=== PATIENT | male | born 1965 | race Caucasian/White ===

== ENCOUNTER 2018-08-21 05:45 | Emergency (ER) | payer OTHER ==
[~2018-08-21] VITALS: Ht 188 cm; Wt 108.9 kg
[~2018-08-21 05:45] MED LIST: CYCL10 PO; HYDACE5 PO; NAPR550 PO; RXNAPNA550 PO
[2018-08-21] MEDS ORDERED: Augmentin 875-1 EACH PO (06:40)
[2018-08-21] MEDS ORDERED: Norco 5-325 Ta1 EACH PO (06:40)
== END 2018-08-21 07:11 | disposition home or self-care (01) ==
LOC: ER 05:45
DX: S01.152A Open bite of left eyelid and periocular area, initial encounter (principal); Z23 Encounter for immunization; W54.0XXA Bitten by dog, initial encounter
CPT/HCPCS: 12013; 90471; 90714; 99283-25

== ENCOUNTER 2019-02-10 03:45 | Emergency (ER) | payer OTHER ==
[~2019-02-10] VITALS: Ht 188 cm; Wt 104.3 kg
[~2019-02-10 03:45] MED LIST changes: +Augmentin 875-1 EACH PO; +Norco 5-325 Ta1 EACH PO
[2019-02-10] MEDS ORDERED: Prinivil10 MG PO (04:19)
[2019-02-10] MEDS ORDERED: AMLO10 PO (04:19)
[2019-02-10 04:28] LABS: BASOPHILS ABSOLUTE AUTO 0.08 K/mm3 (0.00-0.23); BASOPHILS PERCENT AUTO 1 % (0-2); EOSINOPHILS ABSOLUTE AUTO 0.18 K/mm3 (0.00-0.68); EOSINOPHILS PERCENT AUTO 3 % (0-6); Hematocrit 45.4 % (37.0-53.0); Hemoglobin 15.2 g/dL (13.5-17.5); IMMATURE GRAN ABSOLUTE AUTO 0.05 K/mm3 (0.00-0.10); IMMATURE GRAN PERCENT AUTO 1 % (0-1); LYMPHOCYTES ABSOLUTE AUTO 1.87 K/mm3 (0.84-5.20); LYMPHOCYTES PERCENT AUTO 31 % (21-46); MONOCYTES ABSOLUTE AUTO 0.64 K/mm3 (0.16-1.47); MONOCYTES PERCENT AUTO 11 % (4-13); Mean Corpuscular HGB 31.7 pg (26.0-34.0); Mean Corpuscular HGB Conc 33.5 g/dL (31.5-36.5); Mean Corpuscular Volume 95 fL (80-100); Mean Platelet Volume 10.9 fL (9.1-12.4); NEUTROPHILS ABSOLUTE AUTO 3.29 K/mm3 (1.96-9.15); NEUTROPHILS PERCENT AUTO 54 % (41-73); Platelet Count 203 K/mm3 (150-400); RDW Standard Deviation 42.1 fL (35.1-46.3); Red Blood Cell Count 4.79 M/mm3 (4.30-5.90); White Blood Cell Count 6.11 K/mm3 (4.00-11.30)
[2019-02-10 04:49] LABS: Alanine Aminotransfer (ALT/SGP 79 U/L (12-78); Albumin, Blood 3.9 g/dL (3.4-5.0); Albumin/Globulin Ratio 1.3 (0.8-1.8); Alk Phos 75 U/L (50-136); Anion Gap 6 mmol/L (6-16); Aspartate Aminotrans (AST/SGOT 25 U/L (12-37); Bilirubin, Total 0.4 mg/dL (0.1-1.0); Blood Urea Nitrogen 13 mg/dL (8-24); Bun/Creatinine Ratio 19.5 (12.0-20.0); CO2, Blood 27 mmol/L (21-32); Calcium, Blood 8.8 mg/dL (8.5-10.1); Chloride, Blood 109 mmol/L (98-108); Creatinine, Blood 0.67 mg/dL (0.60-1.20); Globulin, Blood 3.1 g/dL (2.2-4.0); Glomerular Filtration Rate >60 (60-); Glucose, Blood 100 mg/dL (70-99); Potassium, Blood 4.1 mmol/L (3.5-5.5); Sodium, Blood 142 mmol/L (136-145); Troponin I <0.015 ng/mL (0.000-0.040)
== END 2019-02-10 06:35 | disposition home or self-care (01) ==
LOC: ER 03:45
PROVIDERS: Emergency Medicine
DX: R07.9 Chest pain, unspecified (principal); M54.9 Dorsalgia, unspecified; Z79.899 Other long term (current) drug therapy
CPT/HCPCS: 36415; 71046; 80053; 83880; 84484; 85025; 93005; 93010; 96374; 99285-25; J1170

== ENCOUNTER 2019-02-12 22:03 | Observation (INO) | payer OTHER ==
[~2019-02-12] VITALS: Ht 188 cm; Wt 105.4 kg
[~2019-02-12 22:03] MED LIST changes: +AMLO10 PO; +Prinivil10 MG PO
[2019-02-12 22:59] LABS: BASOPHILS ABSOLUTE AUTO 0.05 K/mm3 (0.00-0.23); BASOPHILS PERCENT AUTO 1 % (0-2); EOSINOPHILS PERCENT AUTO 1 % (0-6); Hematocrit 42.4 % (37.0-53.0); Hemoglobin 14.3 g/dL (13.5-17.5); IMMATURE GRAN ABSOLUTE AUTO 0.07 K/mm3 (0.00-0.10); IMMATURE GRAN PERCENT AUTO 1 % (0-1); LYMPHOCYTES ABSOLUTE AUTO 1.79 K/mm3 (0.84-5.20); LYMPHOCYTES PERCENT AUTO 17 % (21-46); MONOCYTES ABSOLUTE AUTO 1.07 K/mm3 (0.16-1.47); MONOCYTES PERCENT AUTO 10 % (4-13); Mean Corpuscular HGB 32.3 pg (26.0-34.0); Mean Corpuscular HGB Conc 33.7 g/dL (31.5-36.5); Mean Corpuscular Volume 96 fL (80-100); Mean Platelet Volume 11.2 fL (9.1-12.4); NEUTROPHILS ABSOLUTE AUTO 7.71 K/mm3 (1.96-9.15); NEUTROPHILS PERCENT AUTO 72 % (41-73); Platelet Count 191 K/mm3 (150-400); RDW Coefficient Variation 12.1 % (11.7-14.2); RDW Standard Deviation 42.7 fL (35.1-46.3); Red Blood Cell Count 4.43 M/mm3 (4.30-5.90); White Blood Cell Count 10.79 K/mm3 (4.00-11.30)
[2019-02-12 23:18] LABS: Alanine Aminotransfer (ALT/SGP 140 U/L (12-78); Albumin, Blood 3.9 g/dL (3.4-5.0); Albumin/Globulin Ratio 1.2 (0.8-1.8); Alk Phos 105 U/L (50-136); Anion Gap 6 mmol/L (6-16); Aspartate Aminotrans (AST/SGOT 132 U/L (12-37); Bilirubin, Total 0.7 mg/dL (0.1-1.0); Blood Urea Nitrogen 12 mg/dL (8-24); Bun/Creatinine Ratio 16.2 (12.0-20.0); CO2, Blood 25 mmol/L (21-32); Calcium, Blood 8.4 mg/dL (8.5-10.1); Chloride, Blood 110 mmol/L (98-108); Creatinine, Blood 0.74 mg/dL (0.60-1.20); Globulin, Blood 3.2 g/dL (2.2-4.0); Glomerular Filtration Rate >60 (60-); Glucose, Blood 118 mg/dL (70-99); Sodium, Blood 141 mmol/L (136-145); Total Protein, Blood 7.1 g/dL (6.4-8.2)
[2019-02-13 01:03] LABS: Source, Urine Clean Catch
[2019-02-13 01:07] LABS: Bilirubin, Urine Neg (Neg); Blood, Urine Neg (Neg); Glucose Qualitative, Urine Neg (Neg); Ketones, Urine 2+ (Neg); Leukocyte Esterase, Urine Neg (Neg); Nitrite, Urine Neg (Neg); Protein, Urine Neg (Neg); Specific Gravity, Urine 1.005 (1.003-1.022); Urobilinogen, Urine 1+ (Normal)
[2019-02-13 01:16] LABS: Appearance, Urine Clear (Clear); Color, Urine Yellow (P-Yellow)
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
--- NOTE | 2019-02-13 10:28 | NUR ---
pt awake offered pain meds pt declined at this time
--- NOTE | 2019-02-13 10:53 | NUR ---
dr hughes by to see pt
--- NOTE | 2019-02-13 12:25 | NUR ---
pt transported to day surg via [facility]
--- NOTE | 2019-02-13 12:41 | NUR ---
History, Chart, Medications and Allergies reviewed before start of procedure. Patient confirms NPO status and agrees with scheduled surgery. Lungs clear T/O to Auscultation. Pre-Op teaching done. Pt verbalizes understanding.
--- NOTE | 2019-02-13 14:40 | NUR ---
REPORT TO JOSE GOMEZ.
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
--- NOTE | 2019-02-13 16:57 | NUR ---
RX GIVEN TO STATED SHE MAY GO HOME IN AWHILE TO TAKE OUT THE DOGS
--- NOTE | 2019-02-14 05:29 | NUR ---
SUMMARY POD #1 VSS, PT HAS BEEN SLEEPY THROUGH THE NIGHT. CONT BIOX IN PLACE. O2 VIA NC. PT STATES PAIN IS WNL. DRSG'S REMAIN C/D/I. TOLERATING PO INTAKE. VOIDING WITH NO PROBLEMS. PT CALLS FOR ASSISTANCE PRN. BED ALARM ON FOR SAFETY DUE TO INCREASED SLEEPINESS. CALL LIGHT IN REACH. WCTM
[2019-02-14] MEDS ORDERED: OXYC5 PO (08:35)
--- NOTE | 2019-02-14 11:17 | NUR ---
DISCHARGE PT DISCHARGED HOME AT THIS TIME. PT EDUCATED ON AND RECEIVED PRINTED DC INSTRUCTIONS AND VERB AN UNDERSTANDING. HARD RX FOR NARCOTIC GIVEN TO . IV DC'D. ALL PERSONAL BELONGINGS SENT HOME WITH PT. PT ESCORTED OUT VIA W/C.
== END 2019-02-14 11:13 | disposition home or self-care (01) ==
LOC: ER 22:03 → SURS 22:04
PROVIDERS: Emergency Medicine; ADMIT Surgery
PROC: 0FT44ZZ Resection of Gallbladder, Percutaneous Endoscopic Approach (ICD-10-PCS; principal; 2019-02-13 13:05)
DX: K80.12 Calculus of gallbladder with acute and chronic cholecystitis without obstruction (principal); I10 Essential (primary) hypertension; Z79.899 Other long term (current) drug therapy
CPT/HCPCS: 36415; 71275; 74175; 76705; 80053; 81003; 83690; 85025; 87070; 88304; 93005; 93010; 94762; 96374-59; 99285-25; G0378; J0690; J1100; J2250; J2405; J2543; J2704; J2710; J3010; J7030; J7120; Q9967

== ENCOUNTER 2019-03-19 13:28 | Emergency (ER) | payer OTHER ==
[~2019-03-19] VITALS: Ht 188 cm; Wt 99.8 kg
[~2019-03-19 13:28] MED LIST changes: +OXYC5 PO
[2019-03-19] MEDS ORDERED: Percocet 5-3251 EACH PO (13:52)
[2019-03-19] MEDS ORDERED: CEPH500 PO (13:54)
[2019-03-19] MEDS ORDERED: MUPIROCIN1 GM TOP (13:54)
== END 2019-03-19 14:22 | disposition home or self-care (01) ==
LOC: ER 13:28
DX: T25.222A Burn of second degree of left foot, initial encounter (principal); T24.002A Burn of unspecified degree of unspecified site of left lower limb, except ankle and foot, initial encounter; T31.0 Burns involving less than 10% of body surface; Z79.899 Other long term (current) drug therapy; X08.8XXA Exposure to other specified smoke, fire and flames, initial encounter
CPT/HCPCS: 16020; 96372-59; 99283-25; J1170

== ENCOUNTER → 2020-08-07 | Outpatient (CLI) | payer OTHER ==
[~2020-08-07] MED LIST changes: +CEPH500 PO; +MUPIROCIN1 GM TOP; +Percocet 5-3251 EACH PO
[2020-08-09 13:35] LABS: CORONAVIRUS (COVID19) CSH-NRL Negative (Negative)
== END | disposition home or self-care (01) ==
LOC: LAB 18:25
PROVIDERS: Physician Assistant
DX: J06.9 Acute upper respiratory infection, unspecified (principal); Z20.828 Contact with and (suspected) exposure to other viral communicable diseases
CPT/HCPCS: U0003

== ENCOUNTER 2021-12-09 08:07 | Emergency (ER) | payer OTHER ==
[~2021-12-09] VITALS: Ht 188 cm; Wt 104.3 kg
[2021-12-09 10:09] LABS: BASOPHILS ABSOLUTE AUTO 0.05 K/mm3 (0.00-0.23); BASOPHILS PERCENT AUTO 0 % (0-2); EOSINOPHILS ABSOLUTE AUTO 0.16 K/mm3 (0.00-0.68); EOSINOPHILS PERCENT AUTO 1 % (0-6); Hemoglobin 19.3 g/dL (13.5-17.5); IMMATURE GRAN PERCENT AUTO 1 % (0-1); LYMPHOCYTES ABSOLUTE AUTO 1.46 K/mm3 (0.84-5.20); LYMPHOCYTES PERCENT AUTO 8 % (21-46); MONOCYTES ABSOLUTE AUTO 1.02 K/mm3 (0.16-1.47); MONOCYTES PERCENT AUTO 6 % (4-13); Mean Corpuscular HGB Conc 32.8 g/dL (31.5-36.5); Mean Corpuscular Volume 98 fL (80-100); Mean Platelet Volume 11.7 fL (9.1-12.4); NEUTROPHILS ABSOLUTE AUTO 15.39 K/mm3 (1.96-9.15); NEUTROPHILS PERCENT AUTO 85 % (41-73); Platelet Count 246 K/mm3 (150-400); RDW Coefficient Variation 11.9 % (11.7-14.2); RDW Standard Deviation 43.4 fL (35.1-46.3); Red Blood Cell Count 6.03 M/mm3 (4.30-5.90); White Blood Cell Count 18.18 K/mm3 (4.00-11.30)
[2021-12-09 10:17] LABS: Anion Gap 10 mmol/L (6-16); Blood Urea Nitrogen 14 mg/dL (8-24); Bun/Creatinine Ratio 15.8 (12.0-20.0); CO2, Blood 21 mmol/L (21-32); Calcium, Blood 8.9 mg/dL (8.5-10.1); Chloride, Blood 110 mmol/L (98-108); Creatinine, Blood 0.88 mg/dL (0.60-1.20); Glomerular Filtration Rate >60 (60-); Glucose, Blood 120 mg/dL (70-99); Potassium, Blood 4.6 mmol/L (3.5-5.5); Sodium, Blood 141 mmol/L (136-145)
[2021-12-09 10:21] LABS: Hematocrit 58.8 % (37.0-53.0)
[2021-12-09 11:11] LABS: Influenza A, PCR NEGATIVE (NEGATIVE); Influenza B, PCR NEGATIVE (NEGATIVE); Resp Syncytial Virus, PCR NEGATIVE (NEGATIVE); SARS-Cov-2 (COVID-19) PCR, MMC NEGATIVE (NEGATIVE)
[2021-12-09] MEDS ORDERED: ONDA4ODT MM (13:09)
== END 2021-12-09 13:18 | disposition home or self-care (01) ==
LOC: ER 08:07
PROVIDERS: Student in an Organized Health Care Education/Training Program
DX: R55 Syncope and collapse (principal); K52.9 Noninfective gastroenteritis and colitis, unspecified; D72.829 Elevated white blood cell count, unspecified; E86.0 Dehydration; I10 Essential (primary) hypertension; Z79.899 Other long term (current) drug therapy
CPT/HCPCS: 0241U; 70450; 74177; 80048; 84484; 85025; 93005; 93010; 96374; 99284-25; J2405; J7030; Q9967

== ENCOUNTER → 2022-10-21 | Outpatient (CLI) | payer OTHER ==
[~2022-10-21] MED LIST changes: +ONDA4ODT MM
[2022-10-21 17:37] LABS: Microalb/Creat Ratio UR, Rand 15.446 mg/g (0.000-30.000); Microalbumin, Random Urine 15.6 mg/L (0.000-20.000)
== END | disposition home or self-care (01) ==
LOC: LAB SHORT 14:28 → LAB 14:28
PROVIDERS: Family Medicine
DX: Z13.6 Encounter for screening for cardiovascular disorders (principal); I10 Essential (primary) hypertension
CPT/HCPCS: 82043; 82570

== ENCOUNTER 2023-08-09 14:50 | Inpatient (IN) | payer OTHER ==
[~2023-08-09] VITALS: Ht 188 cm; Wt 106.8 kg
[2023-08-09 15:21] LABS: BASOPHILS ABSOLUTE AUTO 0.08 K/mm3 (0.00-0.23); BASOPHILS PERCENT AUTO 0 % (0-2); EOSINOPHILS ABSOLUTE AUTO 0.04 K/mm3 (0.00-0.68); EOSINOPHILS PERCENT AUTO 0 % (0-6); Hematocrit 48.2 % (37.0-53.0); Hemoglobin 16.6 g/dL (13.5-17.5); IMMATURE GRAN PERCENT AUTO 1 % (0-1); LYMPHOCYTES ABSOLUTE AUTO 1.39 K/mm3 (0.84-5.20); LYMPHOCYTES PERCENT AUTO 7 % (21-46); MONOCYTES ABSOLUTE AUTO 1.16 K/mm3 (0.16-1.47); MONOCYTES PERCENT AUTO 6 % (4-13); Mean Corpuscular HGB 31.9 pg (26.0-34.0); Mean Corpuscular HGB Conc 34.4 g/dL (31.5-36.5); Mean Corpuscular Volume 93 fL (80-100); Mean Platelet Volume 11.4 fL (9.1-12.4); NEUTROPHILS ABSOLUTE AUTO 17.38 K/mm3 (1.96-9.15); NEUTROPHILS PERCENT AUTO 86 % (41-73); Platelet Count 164 K/mm3 (150-400); RDW Coefficient Variation 12.3 % (11.7-14.2); White Blood Cell Count 20.25 K/mm3 (4.00-11.30)
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
[2023-08-09 15:42] LABS: International Normalized Ratio 1.05
[2023-08-09 17:06] LABS: Alanine Aminotransfer (ALT/SGP 83 U/L (12-78); Albumin, Blood 3.8 g/dL (3.4-5.0); Albumin/Globulin Ratio 1.3 (0.8-1.8); Alk Phos 70 U/L (50-136); Anion Gap 6 mmol/L (6-16); Aspartate Aminotrans (AST/SGOT 41 U/L (12-37); Bilirubin, Total 0.4 mg/dL (0.1-1.0); Blood Urea Nitrogen 13 mg/dL (8-24); Bun/Creatinine Ratio 18.6 (12.0-20.0); CO2, Blood 24 mmol/L (21-32); Calcium, Blood 8.4 mg/dL (8.5-10.1); Chloride, Blood 108 mmol/L (98-108); Ethanol (Alcohol), Blood, Med <3 mg/dL; Globulin, Blood 2.9 g/dL (2.2-4.0); Glomerular Filtration Rate 106 (60-); Glucose, Blood 138 mg/dL (70-99); Potassium, Blood 4.2 mmol/L (3.5-5.5); Sodium, Blood 138 mmol/L (136-145); Total Protein, Blood 6.7 g/dL (6.4-8.2)
[2023-08-09 20:45] LABS: Source, Urine Clean Catch
[2023-08-09 21:01] LABS: Appearance, Urine Clear (Clear); Bilirubin, Urine Neg (Neg); Blood, Urine Neg (Neg); Color, Urine Yellow (P-Yellow); Glucose Qualitative, Urine Neg (Neg); Ketones, Urine 3+ (Neg); Leukocyte Esterase, Urine Neg (Neg); Nitrite, Urine Neg (Neg); Protein, Urine 2+ (Neg); Specific Gravity, Urine 1.015 (1.003-1.022); Urobilinogen, Urine NORM (Normal)
[2023-08-09 21:18] LABS: U Amphetamine Screen Not Detected; U Barbituate Screen Not Detected; U Benzodiazapine Screen Not Detected; U Buprenorphine Screen Not Detected; U Cannabinoids Screen Not Detected; U Cocaine Screen Not Detected; U Methadone Screen Not Detected; U Methamphetamine Screen Not Detected; U Opiates Screen DETECTED; U Oxycodone Screen Not Detected; U Phencyclidine Screen Not Detected
[2023-08-09 21:24] LABS: Bacteria Rare /hpf; Hyaline Casts 0-2 /lpf (0-2); Red Blood Cells, Urine Not Seen /hpf (0-2); Squamous Epithelial Cells Not Seen /hpf (Few); White Blood Cells, Urine 0-2 /hpf (0-5)
[2023-08-09 22:06] VITALS: BP 133/88
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
--- NOTE | 2023-08-10 04:32 | NUR ---
SHIFT SUMMARY PATIENT HAD NO ACUTE CHANGES. AXO X4 AND BEDREST. DENIES CHEST PAIN, SOB, AND N/V. ON 4L O2 NC AND ROOM AIR BASELINE. ON PULSE OXIMETRY STATING 95%. REPORTED MINIMAL PAIN FROM SUTURES/PEREZ SITE. IV TORADOL 15 MG GIVEN PER EMAR. NO PAIN WHEN RESTING. USES URINAL AT BEDSIDE. PIVS REMAIN INTACT. VSS/AFEBRILE. SLEPT MOST OF SHIFT. CALL LIGHT IN REACH. BED IN LOWEST POSITION. WILL CONTINUE TO MONITOR UNTIL DAY SHIFT NURSE ASSUMES CARE.
[2023-08-10 04:38] VITALS: BP 145/82
[2023-08-10 05:05] LABS: Hematocrit 45.9 % (37.0-53.0); Hemoglobin 15.4 g/dL (13.5-17.5); Mean Corpuscular HGB 31.4 pg (26.0-34.0); Mean Corpuscular HGB Conc 33.6 g/dL (31.5-36.5); Mean Corpuscular Volume 94 fL (80-100); Mean Platelet Volume 10.6 fL (9.1-12.4); Platelet Count 179 K/mm3 (150-400); RDW Coefficient Variation 12.3 % (11.7-14.2); RDW Standard Deviation 42.5 fL (35.1-46.3); Red Blood Cell Count 4.91 M/mm3 (4.30-5.90); White Blood Cell Count 10.42 K/mm3 (4.00-11.30)
[2023-08-10 05:32] LABS: Magnesium, Blood 2.3 mg/dL (1.6-2.4)
[2023-08-10 05:58] LABS: Bun/Creatinine Ratio 19.9 (12.0-20.0); Creatinine, Blood 0.75 mg/dL (0.60-1.20); Potassium, Blood 4.1 mmol/L (3.5-5.5)
[2023-08-10 06:00] LABS: Calcium, Blood 8.4 mg/dL (8.5-10.1)
[2023-08-10 07:39] VITALS: BP 143/91
--- NOTE | 2023-08-10 11:32 | NUR ---
Pt. is awake in bed. Spouse and Pts. son are present and welcome my visit. Facilitate introductions and a quick prognosis. Spouse introduces me as the barrel lapper that called her the previous day. Listen with a calming presence and empathy. Pts. son is a nurse here at [facility] and is known to [facility] barrel lapper. Family verbalized gratitude for the spiritual care visit.
[2023-08-10 15:22] VITALS: BP 130/78
--- NOTE | 2023-08-10 18:33 | NUR ---
SHIFT SUMMARY AT BEDSIDE THROUGHOUT THE DAY AND SON THERE PART OF DAY WELL. PT UP TO CHAIR WITH P.T. BEFORE LUNCH AND ATE LUNCH IN CHAIR. TORODAL APPEARS EFFECTIVE FOR PAIN. R EYE LID APPEARS BRUISED. IMMOBILIZER IN PLACE TO R ARM. REPORTS QUITE A BIT OF PAIN TO R SHOULDER. NO DISCHARGE FROM HEAD LACERATION. DOZING ON AND OFF THIS AFTERNOON.
[2023-08-10 19:27] VITALS: BP 135/78
--- NOTE | 2023-08-11 04:44 | NUR ---
SHIFT SUMMARY: PT IS ALERT AND ORIENTED. PT IS CALM AND COOPERATIVE CARE. PT IS A ONE PERSON ASSIST, NOT OUT OF BED OVERNIGHT. PT'S PAIN IS BEING WELL CONTROLLED WITH TORADOL, HE DID NOT REQUIRE A DOSE OVERNIGHT. PT DENIES NAUSEA, VOMITING, AND SOB. PT SLEPT MOST OF THE NIGHT WITHOUT ACUTE EVENTS. BED IN LOW POSITION, CALL LIGHT WITHIN REACH. WILL REPORT TO DAY NURSE.
[2023-08-11 05:24] VITALS: BP 149/91
[2023-08-11 07:47] VITALS: BP 130/83
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
[2023-08-11 15:00] VITALS: BP 120/73
[2023-08-11 19:11] VITALS: BP 137/76
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
[2023-08-12 04:45] VITALS: BP 139/79
--- NOTE | 2023-08-12 05:38 | NUR ---
SHIFT SUMMARY. PATIENT A/O. RIGHT ARM IN IMMOBILIZER. PAIN ASSESSED AND MEDICATED PER EMAR. PATIENT CALLS APPROPRIATELY. PATIENT TEARFUL AT TIMES THIS SHIFT. COOPERATIVE WITH CARE AND WITHDRAWN. PATIENT SLEPT OFF AND ON T/O SHIFT. C/O LEGS BEING RESTLESS WITH PAIN-MEDICATED PER EMAR WITH GOOD RESULTS. BED IS LOCKED IN THE LOWEST POSITION WITH CALL LIGHT IN REACH.
[2023-08-12 07:29] VITALS: BP 145/84
--- NOTE | 2023-08-12 19:42 | NUR ---
SHIFT SUMMARY; NIKKY WORKED WITH PT OT TODAY. IS NOW UP TO BATHROOM USING CANE. HE IS MEDICATED WITH TORADOL THIS AM FOR PAIN. PATIENT DENIES ANY PAIN MEDS DURING REST OF DAY. FAMILY AT BEDSIDE THROUGHOUT DAY. COMES TO SEE MASONTENT AND PAITENT IS ENCOURAGED TO EAT AND DRINK DURING DAY.
[2023-08-12 19:49] VITALS: BP 139/87
--- NOTE | 2023-08-13 00:18 | NUR ---
PATIENT C/O INSOMNIA. HOSPITALIST CONTACTED-DR. AYON ORDERED PATIENT 5MG MELATONIN-SEE ORDER.
[2023-08-13 04:12] VITALS: BP 151/92
--- NOTE | 2023-08-13 05:20 | NUR ---
SHIFT SUMMARY PATIENT A/O X4. PATIENT UP TO USE THE BATHROOM WITH ONE PERSON ASSIST/GB/CANE. PAIN HAS BEEN MANAGED TONIGHT WITH SCHEDULED TYLENOL AT THIS TIME. PATIENT CALLS APPROPRIATELY AND IS ABLE TO MAKE HIS NEEDS KNOWN. PATIENT C/O INSOMNIA-MEDICATED PER EMAR-PATIENT REPORTS THIS MORNING THAT ORDERED MELATONIN HELPED FOR A LITTLE BIT OF TIME BUT NOT VERY WELL. BED IS LOCKED IN THE LOWEST POSITION WITH CALL LIGHT IN REACH.
[2023-08-13 07:47] VITALS: BP 130/87
[2023-08-13 16:11] VITALS: BP 130/73
--- NOTE | 2023-08-13 18:08 | NUR ---
SHIFT SUMMARY PT AOX4, SLEPT MOST OF THE SHIFT AFTER C/O PAIN. HE WAS MEDICATED PER THE EMAR. NEW MEDICATIONS ADDS PER DR. FREDERICK WHO ASSESSED HIM TODAY. HAS BEEN AT THE BS MOST OF THE SHIFT. SHE IS HELPFUL. PT RECIEVED A BED BATH AND A LINEN CHANGE THIS SHIFT. HE IS PLEASANT AND MAKES HIS NEEDS KNOWN. DR. FREDERICK SAID POTENTIAL DISCHARGE ON TUESDAY. CALL LIGHT WITHIN REACH, BED IN THE LOWEST POSITION. WILL REPORT TO ONCOMING NURSE.
[2023-08-13 19:34] VITALS: BP 137/74
[2023-08-14 03:55] VITALS: BP 132/73
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
[2023-08-14 07:20] VITALS: BP 122/79
[2023-08-14 16:41] VITALS: BP 130/85
--- NOTE | 2023-08-14 18:38 | NUR ---
SHIFT SUMMARY PT AOX4, 1 ASSIST WITH THE FWW GB TO THE BR. HE IS MOVING WELL. PAIN HAS BEEN WELL MANAGED AND THE PT IS NOT COMPLAINING OF MUCH PAIN THIS SHIFT. HE WAS MEDICATED PER THE EMAR WITH SCHEDULED MEDICATIONS. WAS AT THE BS. POSSIBLE DC HOME TOMORROW. CALL LIGHT WITHIN REACH, BED IN THE LOWEST POSITION. WILL REPORT TO ONCOMING NURSE.
[2023-08-14 20:52] VITALS: BP 130/87
[2023-08-15 05:37] VITALS: BP 127/88
[2023-08-15 07:29] VITALS: BP 128/76
[2023-08-15] MEDS ORDERED: Acetaminophen650 M1 PO (16:37)
[2023-08-15] MEDS ORDERED: SEROQUEL25 MG PO (16:38)
== END 2023-08-15 17:07 | disposition home health service (06) | DRG 552 ==
LOC: ER 14:50 → ERHOLD 17:52 → MEDS 17:52
PROVIDERS: Emergency Medicine; ADMIT Surgery
DX: S32.039A Unspecified fracture of third lumbar vertebra, initial encounter for closed fracture (principal); S22.31XA Fracture of one rib, right side, initial encounter for closed fracture; S42.001A Fracture of unspecified part of right clavicle, initial encounter for closed fracture; S01.81XA Laceration without foreign body of other part of head, initial encounter; M79.651 Pain in right thigh; I10 Essential (primary) hypertension; K76.0 Fatty (change of) liver, not elsewhere classified; V85.0XXA Driver of special construction vehicle injured in traffic accident, initial encounter; Z90.49 Acquired absence of other specified parts of digestive tract; Z28.21 Immunization not carried out because of patient refusal
CPT/HCPCS: 12015; 36415; 70450; 71045; 71260; 72125; 73000; 73030; 73552; 74177; 80048; 80053; 81001; 83690; 83735; 85025; 85027; 85610; 86850; 86900; 86901; 93005; 93010; 94762; 96365; 96375; 96376; 97110; 97116; 97161; 97165; 97530; 97535; 99285-25; A9270; J0690; J1170; J1650; J1885; J2405; Q9967

== ENCOUNTER 2023-10-21 06:10 | Day surgery (SDC) | payer OTHER ==
[~2023-10-21] VITALS: Ht 188 cm; Wt 106.0 kg
[~2023-10-21 06:10] MED LIST changes: +Acetaminophen650 M1 PO; +SEROQUEL25 MG PO
[2023-10-21] MEDS ORDERED: Ropivacaine 0.5% HCl/Pf 5 MG/ML 20ML VIAL ONE (07:04)
[2023-10-21] MEDS ORDERED: Midazolam HCL 1 MG/ML 5MLVIAL ONE (07:08)
[2023-10-21] MEDS ORDERED: FentaNYL Citrate 50 MCG/ML 2 ML Injection ONE ×2 (07:08→08:11)
[2023-10-21] MEDS ORDERED: Lactated Ringer's 1,000 ML IV ONE ×3 (07:08→08:49)
[2023-10-21] MEDS ORDERED: propofoL 20 ML IV ONE (07:09)
[2023-10-21] MEDS ORDERED: CeFAZolin Sodium 2,000 MG VIAL ONE (07:09)
[2023-10-21] MEDS ORDERED: Rocuronium Bromide 10 MG/ML 5ML Injection IV ONE (07:10)
[2023-10-21] MEDS ORDERED: NS 50 ML IV ONE (07:10)
[2023-10-21] MEDS ORDERED: Bupivacaine 0.5% HCl 5 MG/ML 30MLVIAL ONE (07:11)
[2023-10-21] MEDS ORDERED: EPINEPhrine HCl 1 MG/ML 1ML Amp ONE ×2 (07:20→07:22)
[2023-10-21] MEDS ORDERED: Ketamine HCL 10 MG/ML 5ML SYR ONE (07:26)
[2023-10-21] MEDS ORDERED: Ondansetron HCl 2 MG / ML 2ML Vial ONE (07:54)
[2023-10-21] MEDS ORDERED: Dexamethasone Sod Phos 10 MG/ML 1ML VIAL ONE (07:54)
[2023-10-21] MEDS ORDERED: ePHEDrine Sulfate 50 MG/ML 1ML Injection ONE (08:01)
[2023-10-21] MEDS ORDERED: Bupivacaine 0.5% W/EPI 1:200000 SDV 10ML INJ ONE (08:03)
[2023-10-21] MEDS ORDERED: Phenylephrine HCl 100 MCG/ML-NS 10MLSYR (1MG/10ML) ONE (08:23)
--- NOTE | 2023-10-21 08:29 | NUR ---
10/21/23 0829 Roberta Scott PILLJUSTINE UNDER KNEES. RIGHT ARM TUCKED. TWO SAFETY STRAPS ON AND LEFT ARM SECURED ON ARM BOARD
[2023-10-21] MEDS ORDERED: Ketorolac Tromethamine 30mg Vial ONE (09:10)
[2023-10-21 10:49] VITALS: BP 141/85
--- NOTE | 2023-10-21 11:25 | NUR ---
10/21/23 1125 Gilberto Sweet EMELIA PRESENT TO HELP INTERACT WITH PT. ON O2 TITRATED FROM 10LPM TO 5LPM VIA FACE TENT AT 1120. SATS IN THE 94% RANGE ON 5LPM AT THIS TIME.
[2023-10-21] MEDS ORDERED: Ondansetron 4 MG SoluTab ONE (12:40)
== END 2023-10-21 13:15 | disposition home or self-care (01) ==
LOC: ORSCSDS 06:10
PROVIDERS: Orthopaedic Surgery
PROC: 0PS904Z Reposition Right Clavicle with Internal Fixation Device, Open Approach (ICD-10-PCS; principal; 2023-10-21 07:30)
DX: S42.021A Displaced fracture of shaft of right clavicle, initial encounter for closed fracture (principal); I10 Essential (primary) hypertension; G47.33 Obstructive sleep apnea (adult) (pediatric); Z79.899 Other long term (current) drug therapy
CPT/HCPCS: A9270; C1713; J0171; J0690; J1100; J1885; J2250; J2371; J2405; J2704; J2795; J3010; J7120

== ENCOUNTER 2024-11-10 22:14 | Emergency (ER) | payer OTHER ==
[~2024-11-10] VITALS: Ht 188 cm; Wt 95.2 kg
[2024-11-10] MEDS ORDERED: Ketorolac Tromethamine 30mg Vial IV ONE (22:40)
[2024-11-10 22:58] LABS: BASOPHILS ABSOLUTE AUTO 0.08 K/mm3 (0.00-0.23); BASOPHILS PERCENT AUTO 1 % (0-2); EOSINOPHILS ABSOLUTE AUTO 0.16 K/mm3 (0.00-0.68); EOSINOPHILS PERCENT AUTO 2 % (0-6); Hematocrit 45.1 % (37.0-53.0); Hemoglobin 15.6 g/dL (13.5-17.5); IMMATURE GRAN ABSOLUTE AUTO 0.07 K/mm3 (0.00-0.10); IMMATURE GRAN PERCENT AUTO 1 % (0-1); LYMPHOCYTES ABSOLUTE AUTO 2.65 K/mm3 (0.84-5.20); LYMPHOCYTES PERCENT AUTO 31 % (21-46); MONOCYTES ABSOLUTE AUTO 0.97 K/mm3 (0.16-1.47); MONOCYTES PERCENT AUTO 12 % (4-13); Mean Corpuscular HGB Conc 34.6 g/dL (31.5-36.5); Mean Corpuscular Volume 93 fL (80-100); Mean Platelet Volume 10.8 fL (9.1-12.4); NEUTROPHILS ABSOLUTE AUTO 4.54 K/mm3 (1.96-9.15); NEUTROPHILS PERCENT AUTO 54 % (41-73); Platelet Count 158 K/mm3 (150-400); RDW Coefficient Variation 12.2 % (11.7-14.2); RDW Standard Deviation 42.1 fL (35.1-46.3); Red Blood Cell Count 4.87 M/mm3 (4.30-5.90); White Blood Cell Count 8.47 K/mm3 (4.00-11.30)
[2024-11-10 23:16] LABS: Albumin, Blood 3.9 g/dL (3.4-5.0); Albumin/Globulin Ratio 1.3 (0.8-1.8); Bilirubin, Total 0.3 mg/dL (0.1-1.0); Bun/Creatinine Ratio 13.6 (12.0-20.0); Calcium, Blood 8.4 mg/dL (8.5-10.1); Creatinine, Blood 1.32 mg/dL (0.60-1.20); Globulin, Blood 2.9 g/dL (2.2-4.0); Potassium, Blood 3.7 mmol/L (3.5-5.5); Total Protein, Blood 6.8 g/dL (6.4-8.2)
[2024-11-11 00:04] LABS: Source, Urine Voided
[2024-11-11 00:48] LABS: Bilirubin, Urine Neg (Neg); Blood, Urine Neg (Neg); Glucose Qualitative, Urine Neg (Neg); Ketones, Urine 3+ (Neg); Leukocyte Esterase, Urine 1+ (Neg); Nitrite, Urine Neg (Neg); Protein, Urine 1+ (Neg); Specific Gravity, Urine 1.025 (1.003-1.022); Urobilinogen, Urine NORM (Normal)
[2024-11-11 00:59] LABS: Appearance, Urine Clear (Clear); Color, Urine Yellow (P-Yellow)
[2024-11-11 01:00] LABS: Bacteria Mod /hpf; Red Blood Cells, Urine 0-2 /hpf (0-2); Squamous Epithelial Cells Many /hpf (Few)
[2024-11-11] MEDS ORDERED: Flomax0.4 MG PO (01:07)
[2024-11-11] MEDS ORDERED: IBU600 MG PO (01:07)
[2024-11-11 01:15] VITALS: BP 141/91
== END 2024-11-11 01:20 | disposition home or self-care (01) ==
LOC: ER 22:14
PROVIDERS: Emergency Medicine
DX: N20.0 Calculus of kidney (principal); Z79.899 Other long term (current) drug therapy
CPT/HCPCS: 74176; 80053; 81001; 83605; 85025; 87086; 96374; 99284-25; J1885